=== PATIENT | male | born 1955 | race Caucasian/White ===

== ENCOUNTER 2017-11-04 11:51 | Emergency (ER) | payer MEDICAID ==
[~2017-11-04] VITALS: Ht 172.7 cm; Wt 90.7 kg
[~2017-11-04 11:51] MED LIST: AMBIEN 5 MG TABL5 M1 PO; AMLODIPINE BESYL5 M1 PO; BACTRIM DS TAB1 EACH PO; BACTROBAN CREAM30 G1 NASAL; BENTYL 10 MG CA10 M1 PO; CIPROFLOXACIN PO; DAZIDOX10 MG PO; DIAZEPAM 5 MG5 M1 OR; DIAZEPAM 5 MG5 M1 PO; DOXYCYCLINE 10100 M1 PO; DOXYCYCLINE 10100 MG; DOXYCYCLINE HY100 M3 PO; EASY-LAX100 MG PO; HYDROCHLOROTH12.5 MG PO; LEVAQUIN 500 M500 M2 PO; LORTAB 5-325 M1 EACH PO; MEDROLDOSEPACK PO; MINOCIN100 MG PO; MIRALAX17 G1 PO; NORCO 5-325 TA1 EACH PO; OMEPRAZOLE40 MG PO; OSELB75 PO; OXYCODONE HCL 55 MG PO; OXYCODONE HCL15 MG PO; OXYCODONE HCL5 M1 PO; OXYCONTIN20 M1 PO; OXYCONTIN30 MG; POTASSIUM20 PO; RISPERDAL 1 MG T1 MG PO; TENORETIC 50 T1 EACH PO; TRILEPTAL300 MG PO; VALIUM5 MG PO; VENTOLIN HFA 1818 GM INH; ZPAK PO
[2017-11-04] MEDS ORDERED: VISTARIL 25 MG25 M1 PO (12:02)
[2017-11-04 12:33] LABS: ABSOLUTE BASOPHILS 0.1 thou/uL (0.0-0.2); ABSOLUTE EOSINOPHILS 0.2 thou/uL (0.0-0.7); ABSOLUTE MONOCYTES 0.5 thou/uL (0.0-1.2); ABSOLUTE NEUTROPHILS 4.5 thou/uL (1.6-8.1); BASOPHILS 0.8 %; EOSINOPHILS 3.2 %; HEMATOCRIT 38.6 % (42.0-52.0); HEMOGLOBIN 13.3 gm/dL (14.0-18.0); LYMPHOCYTES 27.4 %; MCH 32.6 pg (26.0-34.0); MCHC 34.5 g/dL (28.0-37.0); MCV 94.4 fL (80.0-100.0); MPV 7.9 fl. (7.2-11.1); NUCLEATED RBCS 0 /100WBC; PLATELET COUNT* 199 thou/uL (150-400); POLYS 61.6 %; RBC 4.09 mil/uL (4.50-6.00); RDW-CV 13.5 % (10.5-14.5); WBC 7.3 thou/uL (4.0-11.0)
[2017-11-04 12:42] LABS: ANION GAP 7 mmol/L (7-16); APTT 27.4 Seconds (25.0-31.3); BUN 19 mg/dL (7-18); CALCIUM 8.5 mg/dL (8.5-10.1); CHLORIDE 102 mmol/L (98-107); CO2 29 mmol/L (21-32); GLUCOSE 130 mg/dL (70-99); INR 1.1; POTASSIUM 4.3 mmol/L (3.5-5.1); PROTIME 10.9 Seconds (9.20-11.50); SODIUM 138 mmol/L (136-145)
[2017-11-04 12:49] LABS: ALBUMIN 3.6 g/dL (3.4-5.0); ALKALINE PHOSPHATASE 67 U/L (46-116); SGOT 67 U/L (15-37); SGPT 85 U/L (30-65); TOTAL BILIRUBIN 0.6 mg/dL (<0.1-1.0); TOTAL PROTEIN 8.5 g/dL (6.4-8.2); TROPONIN-I LEVEL <0.06 ng/mL (<0.06)
[2017-11-04 13:14] VITALS: BP 121/75
--- NOTE | 2017-11-04 14:50 | EKG ---
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 Technician: Ivonne MOON : 1955 Requested By: Rosalino Spaulding Order Number: [id number] MD: Jefferson [place] Measurements Intervals [place] Rate: 72 P: 6 VT: 183 QRS: 24 QRSD: 86 T: 44 QT: 379 QTc: 415 Interpretive Statements Sinus rhythm Abnormal R-wave progression, early transition ST segment elevation consistent with early repolarization Compared to ECG 09/25/2015 22:36:57 Left ventricular hypertrophy no longer present Myocardial infarct finding no longer present Electronically Signed On 11-04-2017 14:50:22 CDT by Jefferson [place] [email or web address] <ELECTRONICALLY SIGNED> By: Jefferson [place] MD, FACC 11/04/17 1450 1234 1234 Jefferson [place] MD, FAC /EPI
== END 2017-11-04 13:14 | disposition home or self-care (01) ==
LOC: M.ERS 11:51
PROVIDERS: Family Medicine
DX: R53.1 Weakness (principal); G89.29 Other chronic pain; M54.9 Dorsalgia, unspecified; F32.9 Major depressive disorder, single episode, unspecified; F17.210 Nicotine dependence, cigarettes, uncomplicated; Z86.14 Personal history of Methicillin resistant Staphylococcus aureus infection; Z88.6 Allergy status to analgesic agent; Z88.8 Allergy status to other drugs, medicaments and biological substances

== ENCOUNTER 2018-01-06 10:22 | Emergency (ER) | payer MEDICAID ==
[~2018-01-06] VITALS: Ht 188 cm; Wt 117.0 kg
[~2018-01-06 10:22] MED LIST changes: +VISTARIL 25 MG25 M1 PO
[2018-01-06] MEDS ORDERED: DEPRESSION MED (10:34)
[2018-01-06] MEDS ORDERED: HYDROCODONE-AP1 EAC6 PO (10:56)
[2018-01-06 11:10] VITALS: BP 152/105
== END 2018-01-06 11:11 | disposition home or self-care (01) ==
LOC: M.ERS 10:22
DX: G89.29 Other chronic pain (principal); M54.5 Low back pain; M54.6 Pain in thoracic spine; F32.9 Major depressive disorder, single episode, unspecified; F17.210 Nicotine dependence, cigarettes, uncomplicated; Z86.14 Personal history of Methicillin resistant Staphylococcus aureus infection; Z88.6 Allergy status to analgesic agent; Z88.8 Allergy status to other drugs, medicaments and biological substances

== ENCOUNTER 2019-10-21 18:50 | Emergency (ER) | payer MEDICAID ==
[~2019-10-21] VITALS: Ht 188 cm; Wt 108.9 kg
[~2019-10-21 18:50] MED LIST changes: +DEPRESSION MED; +HYDROCODONE-AP1 EAC6 PO
[2019-10-21] MEDS ORDERED: OMEPRAZOLE 20 M20 M1 PO (19:08)
[2019-10-21] MEDS ORDERED: VISTARIL 25 MG25 M1 PO (19:08)
[2019-10-21 19:37] LABS: ABSOLUTE BASOPHILS 0.1 thou/uL (0.0-0.2); ABSOLUTE EOSINOPHILS 0.1 thou/uL (0.0-0.7); ABSOLUTE MONOCYTES 0.4 thou/uL (0.0-1.2); ABSOLUTE NEUTROPHILS 3.8 thou/uL (1.6-8.1); EOSINOPHILS 2.5 %; HEMATOCRIT 40.1 % (42.0-52.0); HEMOGLOBIN 13.8 gm/dL (14.0-18.0); LYMPHOCYTES 18.4 %; MCH 32.4 pg (26.0-34.0); MCHC 34.4 g/dL (28.0-37.0); MONOCYTES 7.6 %; MPV 10.3 fl. (7.2-11.1); NUCLEATED RBCS 0 /100WBC; PLATELET COUNT* 193 thou/uL (150-400); POLYS 70.5 %; RBC 4.27 mil/uL (4.50-6.00); RDW-CV 14.8 % (10.5-14.5); WBC 5.3 thou/uL (4.0-11.0)
[2019-10-21 19:37] LABS: URINE BLOOD TRACE (Negative); URINE CLARITY CLEAR; URINE COLOR YELLOW; URINE GLUCOSE-RANDOM NEGATIVE (Negative); URINE KETONES NEGATIVE (Negative); URINE LEUKOCYTES-REFLEX NEGATIVE (Negative); URINE NITRITE-REFLEX NEGATIVE (Negative); URINE PROTEIN NEGATIVE (Negative); URINE UROBILINOGEN 0.2 E.U./dl (0.2-1.0)
[2019-10-21 19:40] LABS: ICTOTEST (BILI CONFIRMATORY) Positive (Negative); URINE BILIRUBIN 1+ (Negative)
[2019-10-21 19:47] LABS: CALCIUM 8.9 mg/dL (8.5-10.1); CREATININE 0.7 mg/dL (0.6-1.3); POTASSIUM 4.2 mmol/L (3.5-5.1)
[2019-10-21 19:52] LABS: ALBUMIN 3.6 g/dL (3.4-5.0); TOTAL PROTEIN 8.9 g/dL (6.4-8.2)
[2019-10-21 20:31] LABS: AMP/METHAMP Negative (Negative); BARBITURATES Negative (Negative); BENZODIAZEPINES Negative (Negative); COCAINE Negative (Negative); METHADONE Negative (Negative); OPIATES Negative (Negative); PCP Negative (Negative); THC POSITIVE (Negative)
[2019-10-21] MEDS ORDERED: OXYCODONE HCL 55 MG PO (23:43)
[2019-10-21] MEDS ORDERED: ZOFRAN ODT4 MG PO (23:44)
[2019-10-21] MEDS ORDERED: KEFLEX500 M1 PO (23:45)
[2019-10-22] VITALS: BP 153/93
== END 2019-10-22 00:01 | disposition home or self-care (01) ==
LOC: M.ERS 18:50
PROVIDERS: Emergency Medicine
DX: K43.2 Incisional hernia without obstruction or gangrene (principal); B18.2 Chronic viral hepatitis C; R42 Dizziness and giddiness; G89.29 Other chronic pain; F17.210 Nicotine dependence, cigarettes, uncomplicated; Z88.6 Allergy status to analgesic agent; Z88.8 Allergy status to other drugs, medicaments and biological substances; Z86.14 Personal history of Methicillin resistant Staphylococcus aureus infection; Z79.899 Other long term (current) drug therapy